=== PATIENT | female | born 1950 | race Caucasian/White ===

== ENCOUNTER → 2024-09-17 08:26 | Outpatient (BNVA) | payer MEDICARE, MEDICAID, SELFPAY | PROVIDERS: Family Provider Nurse Practitioner Family; PCP Nurse Practitioner Family; Visit Provider Registered Nurse | DX: I10 Essential (primary) hypertension (principal); E55.9 Vitamin D deficiency, unspecified | CPT/HCPCS: 80053; 80061; 82306; 85025 ==

== ENCOUNTER 2025-01-06 16:25 | Inpatient (IN) | payer MEDICARE, MEDICAID, SELFPAY ==
[2025-01-06] VITALS (10 sets, daily range): BP systolic 106–183; BP diastolic 50–81; PULSE 77–93; RESP 16–25; TEMP 36.4; O2SAT 93–98
--- NOTE | 2025-01-06 16:26 | XRR_ITS ---
PROCEDURE INFORMATION: Exam: XR Chest Exam date and time: 01/06/2025 4:43 PM Age: 74 years old Clinical indication: Chest pressure and sternal or substernal pain; Additional info: Cp TECHNIQUE: Imaging protocol: Radiologic exam of the chest. Views: 1 view. COMPARISON: No relevant prior studies available. FINDINGS: Lungs: Unremarkable. No consolidation. Pleural spaces: Unremarkable. No pleural effusion. No pneumothorax. Heart/Mediastinum: Unremarkable. No cardiomegaly. Bones/joints: Unremarkable. XR/XR chest 1V portable [id number] IMPRESSION: No acute findings.
--- NOTE | 2025-01-06 16:34 | ECG_ITS ---
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 Measurements Intervals [place] Rate: 82 P: 70 [place]: 163 QRS: -71 QRSD: 130 T: 81 QT: 424 QTc: 496 Interpretive Statements SINUS RHYTHM POSSIBLE LEFT ATRIAL ENLARGEMENT [-0.1mV P-WAVE IN V1/V2] LEFT ANTERIOR FASCICULAR BLOCK [QRS AXIS <= -45, QR IN I, RS IN II] POSSIBLE ANTERIOR MYOCARDIAL INFARCTION , OF INDETERMINATE AGE [30 ms Q WAVE IN V3/V4, OR R < 0.2 mV IN V4] No previous ECG available for comparison Electronically Signed On 01-08-2025 20:11:08 STABLE HELPER by Sun Roy M.D. [id number] [id number]
[2025-01-06 17:35] LABS: Hematocrit 46.5 % (36-47); Hemoglobin 16.40 g/dL (11.27-16.99); Mean Corpuscular HGB Conc 35.3 g/dL (30-55); Mean Corpuscular Hemoglobin 30.6 pg (27-33); Mean Corpuscular Volume 86.8 fl (85-98); Nucleated Red Blood Cells % 0 %; Platelet Count 452 10^3/cmm (157-399); Red Blood Count 5.36 10^6/uL (3.85-5.65); White Blood Count 16.95 10^3/uL (3.29-11.43)
[2025-01-06] MEDS: lidocaine 2% viscous 15 ML, aluminum-mag hydrox-simethicon 30 ML, sucralfate oral liq 1 GM PO (17:42)
--- NOTE | 2025-01-06 17:48 | ED_ITS ---
HPI - Chest Pain 2 General: Chief Complaint: Chest Pain Stated Complaint: CP Time Seen by Provider: 01/06/25 17:15 History of Present Illness: Patient is a 74-year-old female who presents with acute onset of chest pain that began this morning at approximately 08:30. The pain is localized to the epigastric region. The patient reports that the pain started after she became upset when attempting to start her car and finding the door lock was frozen. She experienced associated nausea with mouth watering but denies vomiting. The pain has improved somewhat since onset but patient decided to seek medical attention. She reports eating after the episode, which made her feel better. She denies any worsening of symptoms since the initial onset. Of note, patient mentions having a history of hiatal hernia and reports tenderness when pushing on the upper abdominal/lower chest area this morning. Related Data Previous Rx's ?Medication ?Instructions ?Recorded lisinopril 5 mg tablet 5 mg PO DAILY 90 days #90 ta bs 10/09/24 Allergies Allergy/AdvReac Type Severity Reaction Status Date / Time No Known Allergies Allergy Verified 01/06/25 16:39 PFSH ED 2 PFSH: Medical History No pertinent past medical history Surgical History History of surgical removal of ganglion cyst History of tubal ligation Family History Mother Heart disease Father Dementia Social History Smoking and tobacco/nicotine status: current every day tobacco/nicotine user Alcohol intake: never Substance/Drug Use: never Adopted: No Caregiver/support person: No Lives independently: Yes service: No Current occupational status: retired Sexually active: Yes Do you think of yourself as: Straight/Heterosexual Current gender identity: Female Physical Exam 2 Const: COMMON NORMALS: no acute distress GENERAL APPEARANCE: cooperative; not ill appearing and not frail appearing HENMT: COMMON NORMALS: normocephalic, atraumatic and Normal external nose present HEAD & SCALP: normocephalic and atraumatic FACE & SINUS: normal facial exam and face symmetric NOSE: Normal external nose present Eye: COMMON NORMALS: Equal, round and reactive pupils present and EOMs intact bilaterally PUPIL: Yes Equal, round and reactive pupils present Neck/C-Spine: GENERAL: Yes trachea midline Chest: CHEST: Yes Symmetrical chest wall rise Resp: COMMON NORMALS: normal respiratory effort, No retractions, No use of accessory muscles and clear to auscultation bilaterally AUSCULTATION: clear to auscultation bilaterally Cardio: COMMON NORMALS: regular rate and regular rhythm RATE: regular rate RHYTHM: regular rhythm GI: COMMON NORMALS: Normal to inspection, nondistended, normoactive bowel sounds present Extremity: COMMON NORMALS: no pedal edema Neuro: MAHI COMA SCALE: document GCS findings [place] coma scale eye opening: Spontaneous [place] coma scale verbal response: Orientated [place] coma scale motor response: Obey commands Mahi coma scale total score: 15 S ENSORY EXAM: Yes extremities (intact) Psych: COMMON NORMALS: speech normal SPEECH: Yes normal speech Skin: COMMON NORMALS: no rashes or lesions noted GENERAL SKIN EXAM: no rashes or lesions noted Course 2 Vital Signs: Vital signs: Vital Signs Temperature 97.9 F 01/08/25 07:50 Pulse Rate 74 01/08/25 07:50 Respiratory Rate 18 01/08/25 07:50 Blood Pressure 114/55 01/08/25 07:50 Pulse Oximetry 93 01/08/25 07:50 Oxygen Delivery Me thod Room Air 01/08/25 04:00 MDM - Chest Pain Medical Decision Making 74-year-old female with cp most of the day. is essentially resolved now. She was given a GI cocktail which seemed to help to some degree. Her EKG shows left hemiblock, no ST elevation or depression. Chest x-ray is negative. CBC shows a white blood cell count of 17 85% neutrophils. Hemoglobin is 16. Creatinine 0.6. her troponin baseline is 200. TSH is normal. With significant elevation in baseline troponin, she will be admitted. Non-stemi treatment. She was given Aspirin, Plavix, Lovenox in the ER. Hospitalists is aware and we will see the patient. Cardiology will be consulted. Lab Data 01/08/25 07:02 01/08/25 07:02 Radiology Impressions Chest X-Ray 01/06/25 16:26 IMPRESSION: No acute findings. Abdomen/Pelvis CT 01/06/25 17:50 IMPRESSION: No acute process. Incidental and chronic findings as above. Laboratory Results WBC 16.95 10^3/uL (3.29-11.43) H 01/06/25 17: RBC 5.36 10^6/uL (3.85-5.65) 01/06/25 17: Hgb 16.40 g/dL (11.27-16.99) 01/06/25 17: Hct 46.5 % (36-47) 01/06/25 17: MCV 86.8 fl (85-98) 01/06/25 17: MCH 30.6 pg (27-33) 01/06/25 17: MCHC 35.3 g/dL (30-55) 01/06/25: RDW 11.9 % (12.1-15.1) L 01/06/25 17: Plt Count 452 10^3/cmm (157-399) H 01/06/25 17: MPV 10.2 fL (7.4-10.4) 01/06/25 17: Neut % (Auto) 85.4 % 01/06/25 17: Lymph % (Auto) 9.5 % 01/06/25 17: [place] % (Auto) 4.0 % 01/06/25: Eos % (Auto) 0.2 % 01/06/25: Baso % (Auto) 0.5 % 01/06/25: Neut # (Auto) 14.50 10^3/uL (1.8-7.7) H 01/06/25: Lymph # (Auto) 1.6 10^3/uL (0.8-4.8) 01/06/25: [place] # (Auto) 0.7 10^3/uL (0.2-0.9) 01/06/25: Eos # (Auto) 0.0 10^3/uL (0.0-0.8) 01/06/25 17: Baso # (Auto) 0.1 10^3/uL (0.0-0.1) 01/06/25: Nucleated RBC % (auto) 0 % 01/06/25: Nucleated RBCs # 0.0 /100WBC 01/06/25 17:28 PT 12.90 SECONDS (12.1-14.9) 01/06/25 17:28 INR 0.91 (0.8-1.2) 01/06/25 17:28 Sodium 137 mmol/L (136-145) 01/06/25 17:28 Potassium 4.0 mmol/L (3.5-5.1) 01/06/25 17:28 Chloride 101 mmol/L (98-107) 01/06/25 17: Carbon Dioxide 25 mmol/L (22-29) 01/06/25 17:28 Anion Gap 15.0 (5-19) 01/06/25 17:28 BUN 14 mg/dL (8-23) 01/06/25 17:28 Creatinine 0.6 mg/dL (0.5-0.9) 01/06/25 17:28 GFR Calculation Not Reportable 01/06/25 17:28 Glucose 109 mg/dL (65-115) 01/06/25 17:28 Estimat Average Glucose 105 01/06/25 17:28 Hemoglobin A1c 5.3 % (4.0-6.0) 01/06/25 17:28 Calculated Osmolality 285 mOsm/kg (285-295) 01/06/25 17:28 Calcium 9.7 mg/dL (8.5-10.5) 01/06/25 17:28 Phosphorus 3.1 mg/dL (2.5-4.5) 01/06/25 17:28 Magnesium 1.8 mg/dL (1.7-2.3) 01/06/25 17:28 Total Bilirubin 0.5 mg/dL (0.15-1.2) 01/06/25 17:28 AST 27 U/L (0-32) 01/06/25 17:28 ALT 14 U/L (0-33) 01/06/25 17:28 Alkaline Phosphatase 99 U/L (35-105) 01/06/25 17:28 Troponin T Baseline 200 ng/L (0-10) H* 01/06/25 17:28 Total Protein 7.1 g/dL (6.6-8.7) 01/06/25 17:28 Albumin 4.5 g/dL (3.5-5.2) 01/06/25 17:28 Globulin 2.6 g/dL (1.3-4.6) 01/06/25 17:28 Lipase 14 U/L (13-60) 01/06/25 17:28 TSH 3.12 uIU/mL (0.27-4.20) 01/06/25 17:28 All radiology interpretation(s) finalized by discharge EKG Data EKG 1: Interpretation: Time 1634 Read 1638 SR 80 Left hemiblock, borderline LAD QTc [address] wave change Critical Care Time 2 Critical Care Time: Critical Care Time: Yes Total Critical Care Time: 35 Attestation: This case had a high probability of a clinically significant, sudden, or life threatening deterioration of this patient's condition which required my full and direct attention, intervention and personal management. Time is independent of any procedures performed. Discharge Plan Discharge Patient Disposition: Admitted As Inpatient Admit Provider: Gerard Reid Clinical Impression: NSTEMI (non-ST elevated myocardial infarction) Condition: Stable Coding Level of Care Code ED Brood Station Manager for Chg Fwd Heart Score HEART Score Components History: Moderately Suspicious EKG: Non-specific Changes Age: 65 or more yrs Risk Factors: 1 or 2 Risk Factors Troponin: Baseline Trop >45 ng/L HEART Score RESULT HEART Score: 7
--- NOTE | 2025-01-06 17:50 | CTR_ITS ---
PROCEDURE INFORMATION: Exam: CT Abdomen And Pelvis With Contrast Exam date and time: 01/06/2025 5:58 PM Age: 74 years old Clinical indication: Pain and abnormal findings; Abnormal lab test; Elevated wbc; Abdominal pain; Prior surgery; Surgery date: 6+ months; Surgery type: Tubal; Epigastric pain with wbc of 16k. ; Additional info: Epigastric pain leukocytosis TECHNIQUE: Imaging protocol: Computed tomography of the abdomen and pelvis with contrast. Radiation optimization: All CT scans at this facility use at least one of these dose optimization techniques: automated exposure control; mA and/or kV adjustment per patient size (includes targeted exams where dose is matched to clinical indication); or iterative reconstruction. Contrast material: OMNI 350; Contrast volume: 80 ml; Contrast route: INTRAVENOUS (IV); COMPARISON: CR (CHEST, ) 01/06/2025 4:43 PM RADIATION DOSE METRICS: Total DLP (mGy-cm): 323.58 FINDINGS: Liver: Subcentimeter low-density lesion in the right hepatic lobe likely represents a cyst. Gallbladder and biliary ducts: Normal. No calcified stones. No ductal dilation. Pancreas: Normal. No ductal dilation. Spleen: Sequela of chronic granulomatous disease of the spleen. Adrenal glands: Normal. No mass. Kidneys and ureters: Bilateral nonobstructing nephrolithiasis. No hydronephrosis. Stomach and bowel: Colonic diverticulosis. No bowel obstruction. Appendix: No evidence of appendicitis. Intraperitoneal space: Unremarkable. No free air. No significant fluid collection. Vasculature: Atherosclerosis of the abdominal bi iliac aorta. Lymph nodes: Unremarkable. No enlarged lymph nodes. Urinary bladder: Unremarkable as visualized. Reproductive: Unremarkable as visualized. Bones/joints: Unremarkable. No acute fracture. Soft tissues: Unremarkable. CT/CT abdomen pelvis w con* [id number] IMPRESSION: No acute process. Incidental and chronic findings as above.
[2025-01-06 17:53] LABS: INR 0.91 (0.8-1.2); Prothrombin Time 12.90 SECONDS (12.1-14.9)
[2025-01-06 17:58] LABS: Alanine Aminotransferase 14 U/L (0-33); Albumin Level 4.5 g/dL (3.5-5.2); Alkaline Phosphatase 99 U/L (35-105); Anion Gap 15.0 (5-19); Aspartate Amino Transferase 27 U/L (0-32); Blood Urea Nitrogen 14 mg/dL (8-23); Calcium 9.7 mg/dL (8.5-10.5); Carbon Dioxide 25 mmol/L (22-29); Chloride 101 mmol/L (98-107); Globulin 2.6 g/dL (1.3-4.6); Glucose 109 mg/dL (65-115); Lipase 14 U/L (13-60); Osmolality Calculated 285 mOsm/kg (285-295); Potassium 4.0 mmol/L (3.5-5.1); Sodium 137 mmol/L (136-145); Total Protein 7.1 g/dL (6.6-8.7)
[2025-01-06] MEDS: iohexol 350 mg/mL 500 mL Btl (per mL) IV (18:01)
[2025-01-06 18:13] LABS: Troponin(5th) Baseline 200 ng/L (0-10)
--- NOTE | 2025-01-06 18:24 | ECG_ITS ---
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 Measurements Intervals [place] Rate: 82 P: 69 [place]: 175 QRS: -71 QRSD: 126 T: 79 QT: 433 QTc: 506 Interpretive Statements SINUS RHYTHM POSSIBLE LEFT ATRIAL ENLARGEMENT [-0.1mV P-WAVE IN V1/V2] NONSPECIFIC INTRAVENTRICULAR CONDUCTION DELAY LEFT AXIS DEVIATION [QRS AXIS < -30] ANTEROSEPTAL MYOCARDIAL INFARCTION , PROBABLY RECENT [40+ ms Q WAVE IN V1-V4] ACUTE UT Compared to ECG 01/06/2025 16:34:54 Left-axis deviation now present Left anterior fascicular block no longer present Myocardial infarct finding still present Electronically Signed On 01-08-2025 20:09:56 DIESEL TECHNOLOGY INSTRUCTOR by Sun Roy M.D. [email or web address] [id number]
--- NOTE | 2025-01-06 18:29 | P.HP_ITS ---
Providers/Chief Complaint 2 Admitting Physician: Gerrad Reid Primary Care Provider: ADIA Canales Chief Complaint: CP History of Present Illness As per the previous notes and the patient: Rowan Mary is a 74 year old female with past medical history of uncontrolled hypertension on lisinopril 5mg daily, cigarette smoking quit just 1 week ago, presented with chest pain. the chest pain started in the morning when the patient went to help her daughter in the [place] for cleaning. the chest pain was in the center with some heaviness and mild SOB, associated with nausea but no vomiting. no recent exertional SOB or any such episodes in the past. The patient did not report any abdominal pain, diarrhea or vomiting. No fever or chills. No no upper respiratory tract like infectio. No orthopnea or PND or any recent lower leg swellings rest of the review of system was unremarkable. no excessive alcohol or any drug abuse Review of Systems 2 General: Reports: 10 or more systems reviewed and unremarkable except in HPI and below Medications/Allergies Home Medications ?Medication ?Instructions ?Recorded ?Confirmed ?Last Taken ?Type lisinopril 5 mg tablet 5 mg PO DAILY 90 days #90 ta bs 10/09/24 10/09/24 Unknown Rx Allergies Allergy/AdvReac Type Severity Reaction Status Date / Time No Known Allergies Allergy Verified 01/06/25 16:39 PFSH Acute 2 PFSH: Medical History (Updated 01/06/25 @ 19:41 by Gerard Reid MD) No pertinent past medical history Surgical History History of surgical removal of ganglion cyst History of tubal ligation Family History Mother Heart disease Father Dementia Social History Smoking and tobacco/nicotine status: current every day tobacco/nicotine user Alcohol intake: never Substance/Drug Use: never Adopted: No Caregiver/support person: No Lives independently: Yes service: No Current occupational status: retired Sexually active: Yes Do you think of yourself as: Straight/Heterosexual Current gender identity: Female Vitals/I&O/Wt Last Vital Signs Temp 97.6 F 01/06/25 16:36 Pulse 77 01/06/25 17:30 Resp 16 01/06/25 16:36 BP 174/77 01/06/25 17:30 Pulse Ox 95 01/06/25 17:30 O2 Del Method Room Air 01/06/25 17:30 01/06/25 01/06/25 01/06/25 06:59 14:59 22:59 Intake Total 0 / 0 Balance 0 / 0 Weight last 48 hrs Weight 50.349 kg Physical Exam 2 Narrative: General: Alert and oriented, lying comfortably without any distress HEENT: Normocephalic, atraumatic, grossly unremarkable exam Cardio: normal rate rhythm, normal S1-S2 without any murmurs, rubs, or gallops and JVD normal Respiratory: normal vascular breathing on auscultation without any wheezes, stridor, rhonchi GI: Abdomen soft, nontender, nondistended, normoactive bowel sounds present all 4 quadrants, Neuro: intact cranial nerves motor and sensory and cerebellar/coordination function without any focal neurological deficit Behavior: Appropriate and cooperative Extremities: Adequate palpable pulses, mild trace pedal edema Data 01/06/25 17:28 01/06/25 17:28 A&P Assessment and plan 1. ACS (acute coronary syndrome): - Patient having raised troponins which are significant and concerning for NSTEMI worsening STEMI since the EKG changes are still not suggestive of STEMI - Loaded with aspirin and Plavix - Heparin infusion - Urgent cardiology consult for further intervention and plan of care and recommended as per the ER Physician endorsement to treat as NSTEMI and if the patient is having active chest pain or concerning EKG changes then to call urgently for possible CATH - N.p.o. for likely cath tomorrow in the morning - Telemetry/cardiac monitoring - Echo - Monitor and correction of electrolytes - TSH and hba1c, recent lipid panel reviewed done in 10/01 - Monitor hemodynamics and maintain MAP above 65 2. Hypertensive emergency: - patient having NSTEMI vs Stemi, some EKG changes involving the anteroseptal area? alongwith BP above 200s systolic? HTN emergency or the other way around with WA and chest pain leading to increased BP? - stat hydralazine 10mg iv - lisinopril 20mg stat and to start daily - amlodipine 5mg po stat and to start daily - monitor BP - if uncontrolled and still above 200s then consider nicardipine drip - BP target not to go below around 160S systolic in 24 hours, slow and targetted BP control 3. Leukocytosis, unspecified type: - Possible stress related secondary to ACS - No signs of infections based on clinical history and examination - Continue to monitor, if there is any clinical evidence of infection then low threshold for antibiotics - Sent for blood cultures urinalysis and urine cultures - Chest x-ray did not show any acute findings 4. Mixed hyperlipidemia: - Blood works in September showed mixed hyperlipidemia - Continue high-dose statins 5. Cigarette smoker two packs a day or less: - patient recently quit one week ago - Emphasis on smoking cessation has been provided - Follow-up with the primary care physician postdischarge PDMP PDMP Reviewed: Not Reviewed Attestations 2 Medical Necessity Statement*: Patient would likely stay more than 2 midnights for the management of ACS NSTEMI versus STEMI? Time Spent in Patient Care: 16 - 35 minutes (>than 50% of time sp ent in counselling and/or direct pt care on unit) . Other Attestations: Patient condition has been discussed at length with the patient/family, I have independently reviewed the chart labs imaging/diagnostics/EKG. the goals of care and code status with the patient/family/NOK/legal personal financial representative, and documented accordingly. The management has been done according to the current clinical condition with respect to patient goals of care and based on recommendations/guidelines. The patient/family has been informed about the current condition and further plan of care. Agreed with the plan of care and understood without any language barrier. Every effort was made to ensure accuracy of divorce attorney. Any obvious errors or omissions should be clarified with the author of the document. Coding Level of Care Code Acute Code for Chg Fwd Diagnoses ACS (acute coronary syndrome) I24.9 Hypertensive emergency I16.1 Leukocytosis, unspecified type D72.829 Leukocytosis type: unspecified Mixed hyperlipidemia E78.2 Cigarette smoker two packs a day or less F17.210
--- NOTE | 2025-01-06 18:41 | USCV_ITS ---
Rowan Mary Age: 74 Gender: F : 1950 Exam Date: 01/06/2025 19:17 Ordering Phys: Gerard Reid MD Technologist: Kirby Luu Exam Location: [facility] [place] Indication: chest pain and rising troponins BP: 183 / 81 HR: 83 Rhythm: Sinus Technical Quality: Adequate MEASUREMENTS (Male / Female) Normal Values 2D ECHO LV Diastolic Diameter PLAX 3.2 cm 4.2 - 5.9 / 3.9 - 5.3 cm IVS Diastolic Thickness 0.7 cm 0.6 - 1.0 / 0.6 - 0.9 cm IVS Systolic Thickness 0.7 cm LVPW Diastolic Thickness 0.7 cm 0.6 - 1.0 / 0.6 - 0.9 cm LVPW Systolic Thickness 1.2 cm LVOT Diameter 2.0 cm LV Ejection Fraction 2D Teich 42.7 % LV Ejection Fraction MOD 4C 48.7 % LV Ejection Fraction MOD 2C 44.3 % LV Ejection Fraction 2C AL 44.0 % LA Diameter 3.1 cm RA Systolic Volume 4C AL 21.9 ml RA Systolic Volume 4C MOD 21.9 ml LA Sys Volume AL 25.2 cm cubed LA Sys Volume Index AL 17.3 cm cubed/m squared Aorta at Sinotubular Diameter 1.9 cm IVC Diameter 1.7 cm M-MODE LA Ao Ratio MM 1.3 AV Cusp Separation MM 1.4 cm DOPPLER AV Peak Velocity 102.0 cm/s LVOT Peak Velocity 79.0 cm/s AV Area Cont Eq vti 2.4 cm squared AV Area Cont Eq pk 2.4 cm squared MV Peak Velocity 108.0 cm/s MV Area PHT 8.8 cm squared Mitral E to A Ratio 0.5 TV Peak Velocity 170.5 cm/s TR Peak Velocity 176.0 cm/s TR Peak Gradient 12.4 mmHg TR Mean Velocity 129.0 cm/s TR Mean Gradient 7.4 mmHg TR Velocity Time Integral 38.6 cm PV Peak Velocity 83.0 cm/s RV Ejection Time 0.3 s FINDINGS Left Ventricle Normal left ventricular cavity size. There is segmental wall motion abnormality with akinesis of the apical and mid anteroseptal, inferoseptal and inferior wall segments and hypokinesis of the apical and mid anterior wall segments. Moderately reduced left ventricular systolic function with an estimated ejection fraction of 40%. Possible small apical thrombus. Recommend limited echo with IV echo contrast to evaluate further for possible apical thrombus. Normal left ventricular wall thickness. Normal diastolic function. Right Ventricle Normal right ventricular size and systolic function. Normal right ventricular systolic pressure. Right Atrium Normal right atrial size. Left Atrium Normal left atrial size. IA Septum Normal interatrial septum. Mitral Valve Mild mitral valve regurgitation. Aortic Valve Aortic valve not well visualized. No aortic valve stenosis. Trace aortic valve regurgitation. Tricuspid Valve Trace tricuspid valve regurgitation. Pulmonic Valve No pulmonary valve stenosis. No pulmonary valve regurgitation. Pericardium No pericardial effusion. Aorta Normal size aortic root and proximal ascending aorta. IVC Normal inferior vena cava. CONCLUSIONS 1. Normal left ventricular cavity size. There is segmental wall motion abnormality with akinesis of the apical and mid anteroseptal, inferoseptal and inferior wall segments and hypokinesis of the apical and mid anterior wall segments. Moderately reduced left ventricular systolic function with an estimated ejection fraction of 40%. Possible small apical thrombus. Recommend limited echo with IV echo contrast to evaluate further for possible apical thrombus. 2. Normal RV size and function 3. Mild mitral valve regurgitation. Chris Wood MD, FACC (Electronically Signed) Final Date: 06 January 2025 22:05 S
[2025-01-06] MEDS: alum-mag-hydroxide-sime 30 mL UDC 15 ML PO (19:17)
[2025-01-06] MEDS: pantoprazole 40 mg SDV IVP (19:17)
[2025-01-06 19:56] LABS: Magnesium 1.8 mg/dL (1.7-2.3); Thyroid Stimulating Hormone 3.12 uIU/mL (0.27-4.20)
[2025-01-06 20:05] LABS: Estmated Average Glucose 105; Hemoglobin A1C 5.3 % (4.0-6.0)
[2025-01-06] MEDS: hyDRALAzine 20 mg/mL INJ 1 mL 10 MG IVP (20:43)
[2025-01-06] MEDS: ondansetron 2 mg/ML SDV 2 mL 4 MG IVP (21:11)
[2025-01-06 21:17] LABS: Glucose Urine UA Negative (Normal); Nitrate Urine Negative (Negative)
[2025-01-06 21:22] LABS: Add Urine Microscopic? YES
[2025-01-06 21:25] LABS: Specific Gravity, Urine 1.044 (1.005-1.030)
[2025-01-06 21:26] LABS: PCP Screen Urine Negative (Negative)
--- NOTE | 2025-01-06 21:29 | PC.NURSE ---
called and spoke with brant and verified we have no lactated ringers if he wanted me to change to normal saline or discontinue the order he said to discontinue order he does not want her to have normal saline due to her increased blood pressure
--- NOTE | 2025-01-06 22:37 | PC.NURSE ---
workflow will not let me collect the urine culture but urinalysis was collected. spoke to lab they are not sure why it wont collect verified that they do have the urine and it is running and that they can collect the culture off the urinalysis sample they already have. she is going to put in a separate order for urine culture on labs side of things.
[2025-01-07] VITALS (30 sets, daily range): BP systolic 113–142; BP diastolic 48–73; PULSE 77–98; RESP 16–26; TEMP 36.4–37.1; O2SAT 90–95
[2025-01-07] LABS: Troponin 5 6HR Delta -14.5 ng/L (0-12)
[2025-01-07 00:01] LABS: Troponin 5 6HR 185.5 ng/L (0-10)
[2025-01-07] MEDS: alum-mag-hydroxide-sime 30 mL UDC 15 ML PO ×2 (01:15→06:28)
--- NOTE | 2025-01-07 01:43 | ECG_ITS ---
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 Measurements Intervals [place] Rate: 96 P: 73 [place]: 148 QRS: -69 QRSD: 133 T: 84 QT: 416 QTc: 528 Interpretive Statements SINUS RHYTHM LEFT AXIS DEVIATION [QRS AXIS < -30] INTRAVENTRICULAR CONDUCTION DELAY [130+ ms QRS DURATION] POSSIBLE ANTERIOR MYOCARDIAL INFARCTION , OF INDETERMINATE AGE [30 ms Q WAVE IN V3/V4, OR R < 0.2 mV IN V4] Compared to ECG 01/06/2025 18:39:25 Intraventricular conduction delay now present Myocardial infarct finding still present Electronically Signed On 01-08-2025 21:01:21 LICENSED PSYCHOLOGIST by Snu Roy M.D. [email or web address] [id number]
[2025-01-07 03:11] LABS: Hematocrit 43.9 % (36-47); Hemoglobin 15.10 g/dL (11.27-16.99); Mean Corpuscular HGB Conc 34.4 g/dL (30-55); Mean Corpuscular Hemoglobin 30.5 pg (27-33); Mean Corpuscular Volume 88.7 fl (85-98); Nucleated Red Blood Cells % 0 %; Platelet Count 394 10^3/cmm (157-399); Red Blood Count 4.95 10^6/uL (3.85-5.65); White Blood Count 17.74 10^3/uL (3.29-11.43)
[2025-01-07 03:42] LABS: Alanine Aminotransferase 14 U/L (0-33); Albumin Level 4.3 g/dL (3.5-5.2); Alkaline Phosphatase 92 U/L (35-105); Anion Gap 15.8 (5-19); Aspartate Amino Transferase 27 U/L (0-32); Blood Urea Nitrogen 14 mg/dL (8-23); Calcium 9.4 mg/dL (8.5-10.5); Carbon Dioxide 25 mmol/L (22-29); Chloride 100 mmol/L (98-107); Globulin 1.9 g/dL (1.3-4.6); Glucose 126 mg/dL (65-115); Osmolality Calculated 286 mOsm/kg (285-295); Potassium 3.8 mmol/L (3.5-5.1); Sodium 137 mmol/L (136-145); Total Protein 6.2 g/dL (6.6-8.7)
--- NOTE | 2025-01-07 08:39 | XACV_ITS ---
Exam Room: [facility] Ht: 150 cm Wt: 51 kg BSA: 1.47 m2 Gender: Female : 1950 Any Known Allergies: No known allergies Exam Priority: Routine Procedure(s): Procedure Description: Diagnostic procedure Procedure Description: PCI procedure Procedure Description: Left Heart Catheterization Procedure Description: Drug Eluting Coronary Stent Procedure Description: PTCA Procedure Description: Miscellaneous Procedure Description: ACT Procedure Description: Coronary Angiography Dannielle BANUELOS; Diagnostic Cath Status: Elective Diagnostic Findings * Indication: New onset of heart failure LV dysfunction anterior wall and apical wall motion abnormality with possible LV thrombus. Acute coronary syndrome.. PCI Indication: NSTE - ACS Interventional Findings * Successful PCI to mid LAD. Lesion was prepared with 2.5 x 12 mm AV trek balloon, followed by deployment of Jumana resolute 3.0 x 12 mm stent posted at high IVY of 12 mm. Stent was then post-dilated with serial dilatation of MDT NC Nikolai] 3.5 x 12 at 10 IVY in its entire length to ensure proper approximation. Excellent angiographic result with CLINT-3 flow was achieved. Recommendations * 1-Return to inpatient for close monitoring and routine cath care 2-Risk factor modification for secondary prevention 3-Statin and aspirin 81 mg life-long, if tolerated 4-Patient was pre-loaded with 600 mg of Plavix, continue Plavix 75mg p.o. daily for at least one year. We will assess at the end of one year again to continue if further or not 5-Continue optimal medical management 6-Follow up with Dr. Wood in four weeks and your primary care in 10 days. Interventional RX Recommendation: PCI w/o planned CABG Diagnostic RX Recommendation: PCI w/o planned CABG Pressures Phase:Rest AO : 143 / 70 ( 101 ) @ 11:50:00 AM 133 / 67 ( 92 ) @ 11:52:00 AM 167 / 76 ( 116 ) @ 12:01:00 PM 186 / 109 ( 146 ) @ 12:11:00 PM LV : 161 / 7 / 29 @ 12:01:00 PM 162 / 6 / 28 @ 12:01:00 PM Valves Phase:DefaultPhase AV : 0.0 @ 12:22:47 PM AV Mean Gradient: 0.0 @ 12:22:47 PM Clinical Evaluation EBL: 5mL-10mL Procedural Details Procedure Consent Obtained. Admit Source: In Patient. Pre-Procedure Time Out. Identified patient by full name and date of as verbalized by the patient/guarantor. Does the consent match the physician's order: Yes. Accurate & Complete Informed Consent: Yes. Inpatient/Outpatient History & Physical on Chart: Yes. If H&P is completed, is and addenduem needed: No; If yes, is the addendum complete: N/A. Visualize and Verify Site with Patient/Guarantor: N/A. Relevant Radiology Images available: Yes. Pre-op teaching completed and patient verbalized understanding. The risks, benefits, and alternatives of sedation and/or procedure were discussed by physician. The patient agrees to continue. Procedure started. Current Diagnosis : NSTEMI. [facility] Clinical Fraility Score: 3: Managing Well. Soda Clerk Indications: ACS > 24 hours. Chest Pain Symptom Assessment: Atypical Angina. Correct patient, site and procedure confirmed by cath team. Current diagnosis: NSTEMI. PERRLA. Strong, equal hand water pump servicer bilaterally. Lungs clear x 5 lobes. IV Site on Arrival: 20 gauge in the left anticubital. IV Fluids: 0.9% NaCl at KVO. 0 mL infused prior to [facility]. Pre Procedural Pulses: right radial was 2+. Oxygen started at 2liters/min via nasal canula. right groin was prepped with chloroprep then draped in the usual sterile fashion. right radial was prepped with chloroprep then draped in the usual sterile fashion. Baseline sample Acquired. HR: 95 BPM. Physician arrived. Physician scrubbed in. Immediate Pre-Procedure Time Out. Correct Patient: Yes; Correct Procedure: Yes; Correct Site: Yes; Correct Patient Position: Yes; Correct Supplies: Yes; Dried Flammable Prep: Yes; Blood Products Available: N/A;. Lidocaine 1% infiltrated to the right radial. Arterial access obtained. A 5 czech TIG catheter in over wire. Catheter removed over the exchange wire. Contrast injected through the sheath. Glidewire inserted. A 5 czech TIG catheter in over wire. Multiple views taken of left coronary artery. Catheter redirected to the RCA. Multiple views taken of right coronary artery. Catheter removed over the exchange wire. 6 czech XB 3 guide catheter was inserted over the wire. ACT drawn. Results 294 seconds. Therapeutic limits - pre-heparin administration 90-150 seconds and monitoring heparin during a vascular procedure >250 seconds. EDP Sample taken: LV 161/7,29; HR: 95 BPM; SpO2: 93%. Pullback taken: LV 162/6,28; AO 167/76(116); Mean: 0mmHg, Peak to Peak: 0mmHg, SEP: 17sec/min; HR: 95 BPM; SpO2: 92%. Runthrough guidewire was advanced through the guide catheter to lesion in the distal LAD. Inflation number : 1 A AB TREK 2.50X12 RX BALLOON was prepped and advanced across the Mid LAD , then inflated to 12 IVY for 0:13 seconds. Balloon out. Inflation Number : 2 A PIA Bond JUMANA 3.0X12 CHELITA -Lot Number# _[id number] EXP: 04/18/2027 was prepped and advanced across the Mid LAD. The stent was deployed at 12 IVY for 0:11 seconds. Stent balloon out over wire. Inflation number : 3 A PIA VAZ EUPHORA RX [id number] BALLOON was prepped and advanced across the Mid LAD , then inflated to 10 IVY for 0:19 seconds. Inflation number: 4 The PIA VAZ EUPHORA RX [id number] BALLOON was reinflated across the Mid LAD, to 10 IVY for 0:15 seconds. Balloon out. Results checked. Wire out. Guide catheter out. A TR Band was successful obtaining hemostatsis at the Right Radial artery insertion site. Vital chart was stopped. Post Procedure: Pulses reassessed and unchanged. PERRLA. Strong, equal hand water pump servicer bilaterally. No VTE prophylaxis required. Medication's Wasted: Lidocaine 1% = 18 mL. Medication's Wasted: Nitro = 49.6 mcg. Medication's Wasted: Heparin = 1000 units. Total IV fluids: 50 mL. Post-op diagnosis: Stent to LAD. Complications: None. Estimated blood loss: 5mL-10mL. Responsiveness - Normal response to verbal stimuli; alert and oriented, PERRLA. Airway - Unaffected, no intervention required; spontaneous ventilation. Circulation: W/N/L, pulses unchanged. Nausea/Vomiting: No. Procedure completed. Patient transferred by bed to 1st floor. Access Site Site: Right Radial artery Sheath Size: 6 Fr Hemostasis Method: TR Band Hemostasis Success: Successful Procedure Medications Start: 11:33 AM Stop: 11:33 AM Medication: Versed Amount: 1 mg Route: I.V. Start: 11:33 AM Stop: 11:33 AM Medication: Fentanyl Amount: 50 mcg Route: I.V. Start: 11:42 AM Stop: 11:42 AM Medication: Nitrogylcerin Amount: 200 mcg Route: I.A. Start: 11:44 AM Stop: 11:44 AM Medication: Versed Amount: 1 mg Route: I.V. Start: 11:49 AM Stop: 11:49 AM Medication: Heparin Amount: 5000 units Route: I.V. Start: 11:52 AM Stop: 11:52 AM Medication: Nitrogylcerin Amount: 200 mcg Route: I.C. Start: 11:58 AM Stop: 11:58 AM Medication: Fentanyl Amount: 50 mcg Route: I.V. Start: 12:16 PM Stop: 12:16 PM Medication: Hydralazine Amount: 10 mg Route: I.V. Start: 12:16 PM Stop: 12:16 PM Medication: Plavix Amount: 300 mg Route: P.O. I, the attending physician, have reviewed and verified all procedure medications. Yes, all medications given per verbal order History/Risk Factors Hypertension: Yes Dyslipidemia: Yes Peripheral Arterial Disease (PAD): No Myocardial Infarction (CA): No Obesity: No Renal Disease: No Tobacco Use: Current/Recent(w/in 1 year) Prior Interventions PCI: No CABG: No Valve Surgery: No Report Signatures Finalized by Andrey Spicer MD on 01/07/2025 12:35 PM
--- NOTE | 2025-01-07 09:57 | PC.CHAP ---
Pastoral Care Encounter/Spiritual Assessment Type of Contact [] Declined rn call center visit [] Patient/Family/Request visit [] Outpatient visit [] Follow-up visit [] Physician referral [] Code/Alert [x] Routine visit [] Staff referral [] Actively dying [] Patient sleeping [x] Family support [] [] Out of room [] Palliative care [] [] Receiving care in room [] Pre-surgical visit [] Trauma [] Long length of stay [] ICU visit [] Other: Relational/Emotional Strength [] Patient feels connected with others/family/visitors/staff [] Distress [] Loneliness/isolation [] Abandonment Spirituality of Patient [x] Person of [place] [x] Attends Latter Day of their [place] [x] Believes in Prayer [x] Reads Bible or Congregational materials [] There are Spiritual issues to be addressed Metal Bonding Assembler Interventions [x] Prayer [x] Active listening [] Non-anxious presence [] Spiritual/emotional support [] Crisis/trauma care [] Spiritual counseling [] Bereavement support [] Provided bereavement packet [x] Provided Bible/devotional materials [] Provided toy/stuffed animal, coloring book to patient or family member [] Provided Communion [] Anointing/[place] [] Salvation [x] Completed spiritual assessment [] Other: Impact on Illness or Injury [] Angry [] Fearful [] Anxious [] Often cries [] Exhaustion [] Unable to work [] Unable to attend spiritism [] Unable to walk/stand [] Unable to read [] Unable to drive [] Unable to eat/drink [] Unable to sleep [] Unable to be with family [] Patient intubated [] Other: Summary Time spent with patient 45 min
--- NOTE | 2025-01-07 10:50 | P.CONIM_ITS ---
<Statement entered by Chris Wood MD - 01/08/25 12:45> Patient was evaluated and cared for in conjunction with the advanced practice practitioner. Due to computer system upgrade I was not able to add my attestation note to the chart yesterday and therefore am adding it today. I personally saw the patient and reviewed the chart and all pertinent data yesterday. I discussed the patient in detail with the advanced practice practitioner yesterday. Please see their note for complete assessment and agreed upon plan of care for the patient. Providers/Reason For Consult 2 Consulting Physician/Specialty*: Dr. Wood Reason for Consult*: NSTEMI, chest pain Requesting Physician: Dr. Franklin Gee Attending Physician: Gerard Reid MD Primary Care Provider: ADIA Canales History of Present Illness History of Present Illness Rowan Mary is a very pleasant 74 year old female With history of smoking quit just 1 week ago, hypertension, hypercholesterolemia, presented to the emergency room with chest pain. States that her chest pain started Tuesday in the morning when she could not get her door open due to it had froze over. It was at the center of her chest. She did have some nausea associated with this. She states it remained the same in severity and remained consistently present and when it did not improve she went to the emergency room. States she had some nausea with this denies vomiting. Denies any radiation to any other areas. Reports a positive family history for heart disease but denies any personal history of heart disease or heart failure. EKG showed left anterior fascicular block with Q waves in the V leads. Currently she is chest pain-free. Troponins were elevated at 200-153-185. Labs are within normal limits. Blood pressure 123/64. Oxygen saturation 93% on room air. She did get Plavix 300 yesterday and was given aspirin as well. Currently on lisinopril 20 mg and amlodipine 5 mg and Lovenox 50 given in the ER. Echo-ejection fraction is moderately reduced at 40% with possible small apical thrombus. She has segmental wall motion abnormality with akinesis of the apical mid anterior septal inferior septal and inferior wall segments and hypokinesis of the apical and mid anterior wall segments. Review of Systems 2 Narrative: Consitutional: denies fever, chills, body aches, or changes in appetite, denies abnormal weight loss Eyes: Denies changes in vision Card: Denies chest pain, palpitations, irregular heart rhythm, edema, syncope, shortness of breath, orthopnea, leg pain with exertion Resp: Denies shortness of breath, denies hemoptysis, denies cough GI: denies abdominal pain, denies nausea or voimting, denies blood in stool : denies blood in urine, denies dysuria Musc: Denies extremity pain, denies limited range of motion or recent injury Skin: Denies rash, lesions, or wounds, denies changes to skin color Neuro: Denies nubmness in extremities, h/a, s/s of stroke Erich: Denies easy bruiding/bleeding All: Denies s/s of allergies Medications/Allergies Home Medications ?Medication ?Instructions ?Recorded ?Confirmed ?Last Taken ?Type lisinopril 5 mg tablet 5 mg PO DAILY 90 days #90 ta bs 10/09/24 01/07/25 01/06/25 Rx Allergies Allergy/AdvReac Type Severity Reaction Status Date / Time No Known Allergies Allergy Verified 01/06/25 16:39 Current Medications Generic Name Dose Route Start Last Admin Trade Name Freq PRN Reason Stop Dose Admin Acetaminophen 650 mg 01/06/25 18:25 01/07/25 01:15 Acetaminophen 325 Mg Tablet PO 650 mg Q6H PRN Administration Mild/Mod Pain Or Temp >/= 101 Al Hydrox/Mg Hydrox/Simethicone 15 ml 01/06/25 18:30 01/07/25 06:28 Ykmr-Rbr-Eyovgfkhk-Anh 30 Ml Udc PO 15 ml Q6H GULSHAN Administration Lactated Ringer's 1,000 mls @ 100 mls/hr 01/06/25 18:30 01/06/25 21:30 Lactated Ringers IV Not Given .Q10H GULSHAN Ondansetron HCl 4 mg 01/06/25 18:25 01/06/25 21:11 Ondansetron 2 Mg/Ml Sdv 2 Ml IVP 4 mg Q8H PRN Administration vomiting, or N/V if npo Pantoprazole Sodium 40 mg 01/06/25 18:30 01/06/25 19:17 Pantoprazole 40 Mg Sdv IVP 40 mg Q24H GULSHAN Administration Senna 17.2 mg 01/06/25 21:00 01/06/25 21:10 Sennosides 8.6 Mg Tablet PO 17.2 mg BEDTIME GULSHAN Administration PFSH Acute 2 PFSH: Medical History (Updated 01/07/25 @ 10:56 by Jane Obrien NP) No pertinent past medical history Surgical History History of surgical removal of ganglion cyst History of tubal ligation Family History Mother Heart disease Father Dementia Social History Smoking and tobacco/nicotine status: current every day tobacco/nicotine user Alcohol intake: never Substance/Drug Use: never Adopted: No Caregiver/support person: No Lives independently: Yes service: No Current occupational status: retired Sexually active: Yes Do you think of yourself as: Straight/Heterosexual Current gender identity: Female Vitals/I&O/Wt Last Vital Signs Temp 98.4 F 01/07/25 07:20 Pulse 86 01/07/25 07:20 Resp 16 01/07/25 07:20 BP 123/64 01/07/25 07:20 Pulse Ox 93 01/07/25 07:20 O2 Del Method Room Air 01/07/25 07:20 01/06/25 01/07/25 01/07/25 22:59 06:59 14:59 Intake Total 0 / 0 Output Total 100 / 100 Balance 0 / 0 -100 / -100 Weight last 48 hrs Weight 113 lb 8.609 oz Weight 113 lb 8.609 oz Weight 111 lb Physical Exam 2 Narrative: General: No apparent distress, healthy appearing, well nourished HENMT: normoceophalic Neck: No carotid bruit bilaterally Muskuloskeletal: Full ROM Lymphatic: no lymphedema noted Respiratory: Normal respiratory effort, clear to auscultation bilaterally throughout all lung mayo, no use of accessory muscles Cardio: No JVD, regular rate, regular rhythm, S1 S2 normal, no murmurs, peripheral pulses 2+ radial palpated bilaterally GI: Normal to inspection, nondistended Extremities: Full ROM, normal, normal capillary refill, no cyanosis or edema Neuro: Alert and oriented x4, no focal motor deficits Psych: Affect normal, denies suicidal ideation, mental status grossly normal Skin: No rashes or lesions noted, no wounds Data 01/07/25 02:55 01/07/25 02:55 Micro: Microbiology 01/06/25 19:12 Blood Culture - Preliminary Blood SPECIMEN COLLECTED 01/06/25 19:14 Blood Culture - Preliminary Blood SPECIMEN COLLECTED A&P Assessment and plan 1. NSTEMI (non-ST elevated myocardial infarction): 2. Cigarette smoker two packs a day or less: 3. ACS (acute coronary syndrome): 4. Mixed hyperlipidemia: 5. Hypertensive emergency: Plan: At this time patient has NSTEMI as evidenced by increased troponins and EKG change, new onset low EF. indicating possible underlying coronary artery disease. Patient has been n.p.o. since midnight and recommendations are to proceed with left heart cath possible PCI. The risk and benefits were discussed in detail with the patient. The risk of bleeding, hematoma, vascular injury, myocardial infarction, myocardial perforation, malignant cardiac arrhythmias ,CVA, renal failure and other concomitant complications were explained in detail. Patient fully agrees to proceed. For hypertension would continue lisinopril 20 mg and amlodipine [address] yo [address] Reid, for allowing us to care for this very pleasant 74 year old female. PDMP PDMP Reviewed: Not Reviewed Coding Level of Care Code Acute Code for [facility] Fwd Diagnoses NSTEMI (non-ST elevated myocardial infarction) I21.4 Cigarette smoker two packs a day or less F17.210 ACS (acute coronary syndrome) I24.9 Mixed hyperlipidemia E78.2 Hypertensive emergency I16.1
--- NOTE | 2025-01-07 11:32 | W.PM.OPSUD ---
Surgery/Procedure H&P Update DATE OF PROCEDURE: January 07, 2025 DATE H&P PERFORMED: 01/07/25 H&P UPDATE INFORMATION: I have reviewed H&P completed within last 30 days, I have examined patient prior to procedure and No changes to prior documentation PREOP DIAGNOSIS: Nstemi PATIENT REASSESSED PRIOR TO SEDATION, WITH NO CHANGE NOTED: Yes PHYSICAL EXAM: alert, oriented x 3, clear to auscultation bilaterally, regular rate & rhythm and operative site marked AIRWAY EVAL/ANESTHESIA PLAN: ASA II and Patient agrees to continue as planned ADDITIONAL INFORMATION: All risk-benefit and alternative for the procedure has been explained to the patient. Patient understand 2% risk of stroke major bleed. Patient restand 5% risk of minor bleeding oozing infection hematoma contrast-induced nephropathy urgent emergent vascular or bypass surgery. Patient agrees to it and would like to proceed with it
[2025-01-07] MEDS: ondansetron 2 mg/ML SDV 2 mL 4 MG IVP (13:32)
[2025-01-07] MEDS: pantoprazole 40 mg SDV IVP (18:39)
--- NOTE | 2025-01-07 18:43 | P.PN_ITS ---
Subjective 2 Subjective: The patient was seen in the morning after cath While sleepy however no chest pain or shortness of breath reported TR band on the right radial wrist, with mild hematoma however adequate perfusion to the hand observed with normal color Vitals/I&O/Wt Last Vital Signs Temp 97.8 F 01/07/25 12:27 Pulse 94 01/07/25 17:15 Resp 18 01/07/25 17:15 BP 114/50 01/07/25 17:15 Pulse Ox 90 01/07/25 17:15 O2 Del Method Room Air 01/07/25 07:20 01/07/25 01/07/25 01/07/25 06:59 14:59 22:59 Intake Total 240 / 240 360 / 600 Output Total 100 / 100 Balance -100 / -100 240 / 240 360 / 600 Weight last 48 hrs Weight 51.5 kg Weight 51.5 kg Weight 50.349 kg Physical Exam 2 Narrative: General: Alert and oriented, lying comfortably without any distress, able to complete full sentences HEENT: Normocephalic, atraumatic, grossly unremarkable exam Cardio: normal rate rhythm, normal S1-S2 without any murmurs, rubs, or gallops and JVD normal Respiratory: normal vascular breathing on auscultation without any wheezes, stridor, rhonchi GI: Abdomen soft, nontender, nondistended, normoactive bowel sounds present all 4 quadrants, Neuro: intact cranial nerves motor and sensory and cerebellar/coordination function without any focal neurological deficit Behavior: Appropriate and cooperative, TR band on the right radial artery with mild hematoma and bruise with adequate blood flow distally to the hand, adequate capillary refill Extremities: Adequate palpable pulses, mild trace pedal edema Data 01/07/25 02:55 01/07/25 02:55 Micro: Microbiology 01/06/25 19:12 Blood Culture - Preliminary Blood SPECIMEN COLLECTED 01/06/25 19:14 Blood Culture - Preliminary Blood SPECIMEN COLLECTED A&P Assessment and plan 1. ACS (acute coronary syndrome): - Patient on presentation had concerning troponins and admitted as a case of NSTEMI - S/p cath and stenting, continue hydration post stenting and to follow tomorrow -Cardiology on board and to follow the plan of care -Continue aspirin and Plavix with high-dose statins -Continue beta-blockers 25 mg daily - Telemetry/cardiac monitoring - Echo showed ejection fraction of around 40% with regional segmental wall motion abnormalities, for detailed report refer to the echo studies - Monitor and correction of electrolytes - TSH: Normal and hba1c: 5.3%, recent lipid panel reviewed done in 10/01 - Monitor hemodynamics and maintain MAP above 65 2. Hypertensive emergency: - Blood pressure is better controlled -Continue lisinopril 20 mg and amlodipine 5 mg 3. Leukocytosis, unspecified type: - Possible stress related secondary to ACS - No signs of infections based on clinical history and examination - Continue to monitor, if there is any clinical evidence of infection then low threshold for antibiotics - Follow blood culture and urine cultures - Chest x-ray did not show any acute findings 4. Mixed hyperlipidemia: - Blood works in September showed mixed hyperlipidemia - Continue high-dose statins 5. Cigarette smoker two packs a day or less: - patient recently quit one week ago before this presentation - Emphasis on smoking cessation has been provided - Follow-up with the primary care physician postdischarge PDMP PDMP Reviewed: Not Reviewed Attestations 2 Medical Necessity Statement*: Patient will stay overnight for management of ACS s/p cath and stenting and further plan of care following with the cardiology Time Spent in Patient Care: 16 - 35 minutes Other Attestations: Patient condition has been discussed at length with the patient/family, I have independently reviewed the chart labs imaging/diagnostics/EKG. the goals of care and code status with the patient/family/NOK/legal surgical sales representative, and documented accordingly. The management has been done according to the current clinical condition with respect to patient goals of care and based on recommendations/guidelines. The patient/family has been informed about the current condition and further plan of care. Agreed with the plan of care and understood without any language barrier. Every effort was made to ensure accuracy of natural resources instructor. Any obvious errors or omissions should be clarified with the author of the document. Coding Level of Care Code 19894 Diagnoses ACS (acute coronary syndrome) I24.9 Hypertensive emergency I16.1 Leukocytosis, unspecified type D72.829 Leukocytosis type: unspecified Mixed hyperlipidemia E78.2 Cigarette smoker two packs a day or less F17.210
[2025-01-08] VITALS (18 sets, daily range): BP systolic 104–134; BP diastolic 55–77; PULSE 67–86; RESP 13–21; TEMP 36.6; O2SAT 92–95
[2025-01-08] MEDS: metoprolol succinate ER (24 HR) 25 mg Tablet PO (04:46)
[2025-01-08 07:26] LABS: Hematocrit 45.0 % (36-47); Hemoglobin 14.80 g/dL (11.27-16.99); Mean Corpuscular HGB Conc 32.9 g/dL (30-55); Mean Corpuscular Hemoglobin 30.5 pg (27-33); Mean Corpuscular Volume 92.8 fl (85-98); Nucleated Red Blood Cells % 0 %; Platelet Count 447 10^3/cmm (157-399); Red Blood Count 4.85 10^6/uL (3.85-5.65); White Blood Count 16.16 10^3/uL (3.29-11.43)
[2025-01-08 07:50] LABS: Anion Gap 15.9 (5-19); Blood Urea Nitrogen 15 mg/dL (8-23); Calcium 8.8 mg/dL (8.5-10.5); Carbon Dioxide 25 mmol/L (22-29); Chloride 103 mmol/L (98-107); Glucose 106 mg/dL (65-115); Osmolality Calculated 291 mOsm/kg (285-295); Potassium 3.9 mmol/L (3.5-5.1); Sodium 140 mmol/L (136-145)
--- NOTE | 2025-01-08 10:43 | P.PN_ITS ---
<Statement entered by Andrey Spicer MD - 01/09/25 18:56> Patient was evaluated and cared for in conjunction with an advanced practice practitioner. I personally examined the patient and reviewed the chart and all pertinent data including imaging, telemetry, and laboratory results. I discussed the patient in detail with the advanced practice practitioner. Please see their note for complete H&P testing result and agreed upon plan of care for the patient. Subjective 2 Subjective: Patient's status post stent to the LAD. She is doing well without any chest pain. Cath site looks good. EF is 40%. Labs are stable. Blood pressures stable. Appears euvolemic. Vitals/I&O/Wt Last Vital Signs Temp 97.9 F 01/08/25 07:50 Pulse 74 01/08/25 07:50 Resp 18 01/08/25 07:50 BP 114/55 01/08/25 07:50 Pulse Ox 93 01/08/25 07:50 O2 Del Method Room Air 01/08/25 04:00 01/07/25 01/08/25 01/08/25 22:59 06:59 14:59 Intake Total 360 / 600 1120 / 1720 360 / 360 Balance 360 / 600 1120 / 1720 360 / 360 Weight last 48 hrs Weight 114 lb 13.773 oz Weight 113 lb 8.609 oz Weight 113 lb 8.609 oz Weight 111 lb Physical Exam 2 Narrative: General: No apparent distress, healthy appearing, well nourished HENMT: normoceophalic Neck: No carotid bruit bilaterally Muskuloskeletal: Full ROM Lymphatic: no lymphedema noted Respiratory: Normal respiratory effort, clear to auscultation bilaterally throughout all lung mayo, no use of accessory muscles Cardio: No JVD, regular rate, regular rhythm, S1 S2 normal, no murmurs, peripheral pulses 2+ radial palpated bilaterally GI: Normal to inspection, nondistended Extremities: Full ROM, normal, normal capillary refill, no cyanosis or edema Neuro: Alert and oriented x4, no focal motor deficits Psych: Affect normal, denies suicidal ideation, mental status grossly normal Skin: No rashes or lesions noted, no wounds Data 01/08/25 07:02 01/08/25 07:02 Micro: Microbiology 01/06/25 19:12 Blood Culture - Preliminary Blood NEGATIVE TO DATE 01/06/25 19:14 Blood Culture - Preliminary Blood NEGATIVE TO DATE A&P Assessment and plan 1. NSTEMI (non-ST elevated myocardial infarction): 2. Cigarette smoker two packs a day or less: 3. ACS (acute coronary syndrome): 4. Mixed hyperlipidemia: 5. Hypertensive emergency: Plan: At this time were going to initiate goal-directed therapy with Entresto at a low dose. We will see how she does today and if her pressures tolerate it discharge tomorrow. Continue to monitor RACHEL's and for worsening signs of heart failure. At this time patient is euvolemic. Continue metoprolol succinate 25, aspirin, Plavix, atorvastatin. PDMP PDMP Reviewed: Not Reviewed Attestations 2 Medical Necessity Statement*: Defer to primary Coding Level of Care Code Acute Code for [facility] Diagnoses NSTEMI (non-ST elevated myocardial infarction) I21.4 Cigarette smoker two packs a day or less F17.210 ACS (acute coronary syndrome) I24.9 Mixed hyperlipidemia E78.2 Hypertensive emergency I16.1
--- NOTE | 2025-01-08 13:44 | P.PN_ITS ---
Subjective 2 Subjective: Patient's status post stent to the LAD. Appears euvolemic and no chest pain or shortness of breath. Cardiology on board EF is 40%. Vitals/I&O/Wt Last Vital Signs Temp 97.9 F 01/08/25 07:50 Pulse 80 01/08/25 12:00 Resp 19 H 01/08/25 12:00 BP 134/77 01/08/25 12:00 Pulse Ox 95 01/08/25 12:00 O2 Del Method Room Air 01/08/25 08:00 01/07/25 01/08/25 01/08/25 22:59 06:59 14:59 Intake Total 360 / 600 1120 / 1720 720 / 720 Balance 360 / 600 1120 / 1720 720 / 720 Weight last 48 hrs Weight 52.1 kg Weight 51.5 kg Weight 51.5 kg Weight 50.349 kg Physical Exam 2 Narrative: General: Alert and oriented, lying comfortably without any distress, able to complete full sentences HEENT: Normocephalic, atraumatic, grossly unremarkable exam Cardio: normal rate rhythm, normal S1-S2 without any murmurs, rubs, or gallops and JVD normal, right radial artery seen, mild bruise no hematoma and adequate distal flow to the hand Respiratory: normal vascular breathing on auscultation without any wheezes, stridor, rhonchi GI: Abdomen soft, nontender, nondistended, normoactive bowel sounds present all 4 quadrants, Neuro: intact cranial nerves motor and sensory and cerebellar/coordination function without any focal neurological deficit Behavior: Appropriate and cooperative, right radial artery palpable and good flow distally, mild bruise on the right radial side Extremities: Adequate palpable pulses, mild trace pedal edema Data 01/08/25 07:02 01/08/25 07:02 Micro: Microbiology 01/06/25 21:04 Urine Culture - Preliminary Urine,Clean Catch 01/06/25 19:12 Blood Culture - Preliminary Blood NEGATIVE TO DATE 01/06/25 19:14 Blood Culture - Preliminary Blood NEGATIVE TO DATE A&P Assessment and plan 1. ACS (acute coronary syndrome): - Patient on presentation had concerning troponins and admitted as a case of NSTEMI - S/p cath and stenting to LAD - Cardiology on board and to continue on aspirin and Plavix with high-dose statins -Continue beta-blockers 25 mg daily - Based on patient EF, added Entresto and to see if she tolerates and later to add rest of the GDMT medications as per tolerance and patient's hemodynamics. - Monitor and correction of electrolytes - TSH: Normal and hba1c: 5.3%, recent lipid panel reviewed done in 10/01 - Monitor hemodynamics and maintain MAP above 65 2. Hypertensive emergency: - Blood pressure is better controlled - Continue lisinopril 20 mg and amlodipine 5 mg 3. Leukocytosis, unspecified type: - Possible stress related secondary to ACS - No signs of infections based on clinical history and examination - Blood cultures and urine cultures prelim negative - Chest x-ray did not show any acute findings - Continue to monitor, if there is any clinical evidence of infection then low threshold for antibiotics 4. Mixed hyperlipidemia: - Blood works in September showed mixed hyperlipidemia - Continue high-dose statins 5. Cigarette smoker two packs a day or less: - patient recently quit one week ago before this presentation - Emphasis on smoking cessation has been provided - Follow-up with the primary care physician postdischarge Plan: VTE: enoxaparin Diet: cardiac PDMP PDMP Reviewed: Not Reviewed Attestations 2 Medical Necessity Statement*: Patient will stay over midnight for the management of chronic artery disease s/p stenting and heart failure with reduced ejection fraction for GDMT Time Spent in Patient Care: 16 - 35 minutes (>than 50% of time sp ent in counselling and/or direct pt care on unit) . Other Attestations: Patient condition has been discussed at length with the patient/family, I have independently reviewed the chart labs imaging/diagnostics/EKG. the goals of care and code status with the patient/family/NOK/legal sales representative wire rope, and documented accordingly. The management has been done according to the current clinical condition with respect to patient goals of care and based on recommendations/guidelines. The patient/family has been informed about the current condition and further plan of care. Agreed with the plan of care and understood without any language barrier. Every effort was made to ensure accuracy of fire protection fabricator. Any obvious errors or omissions should be clarified with the author of the document. Coding Level of Care Code 49768 Diagnoses ACS (acute coronary syndrome) I24.9 Hypertensive emergency I16.1 Leukocytosis, unspecified type D72.829 Leukocytosis type: unspecified Mixed hyperlipidemia E78.2 Cigarette smoker two packs a day or less F17.210
[2025-01-08] MEDS: pantoprazole 40 mg SDV IVP (17:40)
[2025-01-09] VITALS: BP 112/53; PULSE 64; PULSE 66; RESP 18; RESP 19; O2SAT 92
[2025-01-09 04:00] VITALS: BP 126/60; PULSE 70; PULSE 78; RESP 20; RESP 22; TEMP 36.8; O2SAT 93; O2SAT 94
[2025-01-09] MEDS: metoprolol succinate ER (24 HR) 25 mg Tablet PO (05:22)
[2025-01-09 07:14] LABS: Hematocrit 43.8 % (36-47); Hemoglobin 14.00 g/dL (11.27-16.99); Mean Corpuscular HGB Conc 32.0 g/dL (30-55); Mean Corpuscular Hemoglobin 31.0 pg (27-33); Mean Corpuscular Volume 97.1 fl (85-98); Nucleated Red Blood Cells % 0 %; Platelet Count 358 10^3/cmm (157-399); Red Blood Count 4.51 10^6/uL (3.85-5.65); White Blood Count 11.98 10^3/uL (3.29-11.43)
[2025-01-09 07:30] LABS: Alanine Aminotransferase 13 U/L (0-33); Albumin Level 3.6 g/dL (3.5-5.2); Alkaline Phosphatase 81 U/L (35-105); Anion Gap 14.0 (5-19); Aspartate Amino Transferase 26 U/L (0-32); Blood Urea Nitrogen 17 mg/dL (8-23); Calcium 8.8 mg/dL (8.5-10.5); Carbon Dioxide 24 mmol/L (22-29); Chloride 102 mmol/L (98-107); Globulin 2.4 g/dL (1.3-4.6); Glucose 109 mg/dL (65-115); Magnesium 2.1 mg/dL (1.7-2.3); Osmolality Calculated 284 mOsm/kg (285-295); Potassium 4.0 mmol/L (3.5-5.1); Sodium 136 mmol/L (136-145); Total Protein 6.0 g/dL (6.6-8.7)
[2025-01-09 07:48] VITALS: BP 126/66; PULSE 73; RESP 17; TEMP 36.7; O2SAT 94
[2025-01-09 08:00] VITALS: BP 126/99; PULSE 71; RESP 20; O2SAT 93
--- NOTE | 2025-01-09 08:03 | PM.DCS ---
Documented by User: Malissa Paz MD 01/09/25 11:42 Discharge Providers Date of Admission: 01/06/25 18:24 Date of Discharge: January 09, 2025 Attending Provider at Admission: Gerard Reid MD Attending Provider at Discharge: Malissa Paz MD Consults: cardiology Primary Care Provider: ADIA Canales Diagnoses at Discharge Discharge Diagnosis 1. ACS (acute coronary syndrome): 2. Hypertensive emergency: 3. Leukocytosis, unspecified type: 4. Mixed hyperlipidemia: 5. Cigarette smoker two packs a day or less: Reason for Visit Reason for Visit: CP Hospital Course Hospital Course Patient is a pleasant 74-year-old female who presented to the hospital with complaints of chest pain, found to have NSTEMI. 1. ACS (acute coronary syndrome): - Patient on presentation had concerning troponins and admitted as a case of NSTEMI - S/p cath and stenting to LAD - Cardiology on board and to continue on aspirin and Plavix with high-dose statins -Continue beta-blockers 25 mg daily - Based on patient EF, added Entresto -Hemodynamic stable, will be discharged on aspirin Plavix statin beta-sohan and Entresto. - TSH: Normal and hba1c: 5.3%, recent lipid panel reviewed done in 10/01 2. Hypertensive emergency: - Blood pressure is better controlled - Continue lisinopril 20 mg and amlodipine 5 mg 3. Leukocytosis, unspecified type: Has improved significantly - Possible stress related secondary to ACS - No signs of infections based on clinical history and examination - Blood cultures and urine cultures prelim negative - Chest x-ray did not show any acute findings - No antibiotics upon discharge 4. Mixed hyperlipidemia: - Blood works in September showed mixed hyperlipidemia - Continue high-dose statin, continued upon discharge 5. Cigarette smoker two packs a day or less: - patient recently quit one week ago before this presentation - Emphasis on smoking cessation has been provided - Follow-up with the primary care physician postdischarge Patient currently medically stable for discharge. Will follow-up with PCP and cardiology outpatient. Discussed with patient and nursing staff Physical Exam Narrative: General: Alert and oriented, lying comfortably without any distress, able to complete full sentences HEENT: Normocephalic, atraumatic, grossly unremarkable exam Cardio: normal rate rhythm, normal S1-S2 without any murmurs, rubs, or gallops and JVD normal, right radial artery seen, mild bruise no hematoma and adequate distal flow to the hand Respiratory: normal vascular breathing on auscultation without any wheezes, stridor, rhonchi GI: Abdomen soft, nontender, nondistended, normoactive bowel sounds present all 4 quadrants, Neuro: intact cranial nerves motor and sensory and cerebellar/coordination function without any focal neurological deficit Behavior: Appropriate and cooperative, right radial artery palpable and good flow distally, mild bruise on the right radial side Extremities: Adequate palpable pulses Discharge Data Studies Completed and Pending Completed Studies During Hospitalization Category Date Time Status CT abdomen pelvis w con* [id number] Urgent Cat Scan 01/06/25 17:50 Completed [employer] request for service Routine Exams 01/07/25 08:39 Completed XR chest 1V portable [id number] Stat Exams 01/06/25 16:26 Completed CV. echo complete* [id number] Stat Ultrasound 01/06/25 18:41 Completed Pending at discharge Category Date Time Status Blood Culture Stat Lab 01/06/25 19:12 Results Platelet Count Q2D Lab 01/10/25 04:00 Ordered Platelet Count Q2D Lab 01/10/25 04:00 Ordered Urine Culture Routine Lab 01/06/25 21:04 Results Urine Culture Stat Lab 01/06/25 18:43 Uncollected Radiology Impressions Chest X-Ray 01/06/25 16:26 IMPRESSION: No acute findings. Abdomen/Pelvis CT 01/06/25 17:50 IMPRESSION: No acute process. Incidental and chronic findings as above. Laboratory Results WBC 11.98 10^3/uL (3.29-11.43) H 01/09/25 06:30 RBC 4.51 10^6/uL (3.85-5.65) 01/09/25 06:30 Hgb 14.00 g/dL (11.27-16.99) 01/09/25 06:30 Hct 43.8 % (36-47) 01/09/25 06:30 MCV 97.1 fl (85-98) 01/09/25 06:30 MCH 31.0 pg (27-33) 01/09/25 06:30 MCHC 32.0 g/dL (30-55) 01/09/25 06:30 RDW 12.2 % (12.1-15.1) 01/09/25 06:30 Plt Count 358 10^3/cmm (157-399) 01/09/25 06:30 MPV 10.6 fL (7.4-10.4) H 01/09/25 06:30 Neut % (Auto) 75.0 % 01/09/25 06:30 Lymph % (Auto) 14.9 % 01/09/25 06:30 [place] % (Auto) 6.1 % 01/09/25 06:30 Eos % (Auto) 2.9 % 01/09/25 06:30 Baso % (Auto) 0.8 % 01/09/25 06:30 Neut # (Auto) 9.00 10^3/uL (1.8-7.7) H 01/09/25 06:30 Lymph # (Auto) 1.8 10^3/uL (0.8-4.8) 01/09/25 06:30 [place] # (Auto) 0.7 10^3/uL (0.2-0.9) 01/09/25 06:30 Eos # (Auto) 0.4 10^3/uL (0.0-0.8) 01/09/25 06:30 Baso # (Auto) 0.1 10^3/uL (0.0-0.1) 01/09/25 06:30 Nucleated RBC % (auto) 0 % 01/09/25 06:30 Nucleated RBCs # 0.0 /100WBC 01/09/25 06:30 PT 12.90 SECONDS (12.1-14.9) 01/06/25 17:28 INR 0.91 (0.8-1.2) 01/06/25 17:28 Sodium 136 mmol/L (136-145) 01/09/25 06:30 Potassium 4.0 mmol/L (3.5-5.1) 01/09/25 06:30 Chloride 102 mmol/L (98-107) 01/09/25 06:30 Carbon Dioxide 24 mmol/L (22-29) 01/09/25 06:30 Anion Gap 14.0 (5-19) 01/09/25 06:30 BUN 17 mg/dL (8-23) 01/09/25 06:30 Creatinine 0.7 mg/dL (0.5-0.9) 01/09/25 06:30 GFR Calculation Not Reportable 01/09/25 06:30 Glucose 109 mg/dL (65-115) 01/09/25 06:30 Estimat Average Glucose 105 01/06/25 17:28 Hemoglobin A1c 5.3 % (4.0-6.0) 01/06/25 17:28 Calculated Osmolality 284 mOsm/kg (285-295) L 01/09/25 06:30 Calcium 8.8 mg/dL (8.5-10.5) 01/09/25 06:30 Phosphorus 3.1 mg/dL (2.5-4.5) 01/06/25 17: Magnesium 2.1 mg/dL (1.7-2.3) 01/09/25 06:30 Total Bilirubin 0.4 mg/dL (0.15-1.2) 01/09/25 06:30 AST 26 U/L (0-32) 01/09/25 06:30 ALT 13 U/L (0-33) 01/09/25 06:30 Alkaline Phosphatase 81 U/L (35-105) 01/09/25 06:30 Troponin T Baseline 200 ng/L (0-10) H* 01/06/25 17:28 Troponin T 120 Minute 153.8 ng/L (0-10) H 01/06/25 19:14 Delta Troponin T -46.2 ABS# (0-10) L 01/06/25 19:14 Troponin T Hi Sens 6Hr 185.5 ng/L (0-10) H 01/06/25 23:30 Troponin T Hi Sens 6Hr Delta -14.5 ng/L (0-12) L 01/06/25 23:30 Total Protein 6.0 g/dL (6.6-8.7) L 01/09/25 06:30 Albumin 3.6 g/dL (3.5-5.2) 01/09/25 06:30 Globulin 2.4 g/dL (1.3-4.6) 01/09/25 06:30 Lipase 14 U/L (13-60) 01/06/25 17:28 TSH 3.12 uIU/mL (0.27-4.20) 01/06/25 17:28 Urine Color [place] (Yellow) A 01/06/25 21:04 Urine Appearance Clear (CLEAR) 01/06/25 21:04 Urine pH 6.5 (5-7) 01/06/25 21:04 Ur Specific [place] 1.044 (1.005-1.030) H 01/06/25 21:04 Urine Protein Negative (Negative) 01/06/25 21:04 Urine Glucose (UA) Negative (Normal) 01/06/25 21:04 Urine Ketones 1+ (Negative) H 01/06/25 21:04 Urine Blood Negative (Negative) 01/06/25 21:04 Urine Nitrate Negative (Negative) 01/06/25 21:04 Urine Bilirubin Negative (Negative) 01/06/25 21:04 Urine Urobilinogen 0.2 mg/dL (Negative) 01/06/25 21:04 Ur Leukocyte Esterase Trace (Negative) A 01/06/25 21:04 Urine RBC 0-2 /hpf (0-2) 01/06/25 21:04 Urine WBC 11-20 /hpf (0-5) H 01/06/25 21:04 Ur Squamous Epith Cells 0-5 /hpf (0-5) 01/06/25 21:04 Amorphous Sediment Not Reportable 01/06/25 21:04 Urine Bacteria None seen /hpf (NONE) 01/06/25 21:04 Hyaline Casts 0-4 /lpf H 01/06/25 21:04 Urine Opiates Screen Negative ng/mL (Negative) 01/06/25 21:04 Ur Barbiturates Screen Negative ng/mL (Negative) 01/06/25 21:04 Ur Phencyclidine Scrn Negative ng/mL (Negative) 01/06/25 21:04 Ur Amphetamines Screen Negative ng/mL (Negative) 01/06/25 21:04 U Benzodiazepines Scrn Negative ng/mL (Negative) 01/06/25 21:04 Urine Cocaine Screen Negative ng/mL (Negative) 01/06/25 21:04 U Marijuana (THC) Screen Negative ng/mL (Negative) 01/06/25 21:04 Vitals Last Vital Signs Temp 98.0 F 01/09/25 07:48 Pulse 73 01/09/25 07:48 Resp 17 01/09/25 07:48 BP 126/66 01/09/25 07:48 Pulse Ox 94 01/09/25 07:48 O2 Del Method Room Air 01/09/25 04:00 Discharge Plan Discharge Patient Disposition: Home Condition: Stable Prescriptions: New atorvastatin 40 mg Tablet 40 mg PO DAILY Qty: 30 0RF clopidogrel 75 mg Tablet 75 mg PO DAILY Qty: 30 0RF aspirin 81 mg Tablet,Delayed Release (Dr/Ec) 81 mg PO DAILY Qty: 30 0RF metoprolol succinate 25 mg Tablet Extended Release 24 Hr 25 mg PO DAILY Qty: 30 0RF Discontinued lisinopril 5 mg tablet 5 mg PO DAILY 90 Days Qty: 90 3RF No Action sacubitril-valsartan [Entresto] 24-26 mg tablet 1 tab PO BID Qty: 180 1RF Discharge Order = DC NOW: Discharge Order (Routine); Ordered 01/09/25 Ordered By: Malissa Paz Referrals: Juaquin Bustamante FNP [Primary Care Provider, Family Practice] - 01/14/25 1:40 pm Liv Dias FNP [Nurse Practitioner, Cardiology] - 01/23/25 3:00 pm Discharge Diet: Cardiac Discharge Activity: Increase activity as tolerated Patient Instructions: Metoprolol (By mouth), Aspirin (By mouth), Atorvastatin (By mouth), Clopidogrel (By mouth), Sacubitril/Valsartan (By mouth), Coronary Angioplasty (DC), How to Stop Smoking (DC), Opioid Safety, Post Angiogram Home Care Instructions, Patient Portal & Andrea Instructions Discharge Attestations Time Spent in Discharge Care*: greater than 30 min Coding Level of Care Code Acute Code for [facility] Diagnoses ACS (acute coronary syndrome) I24.9 Hypertensive emergency I16.1 Leukocytosis, unspecified type D72.829 Leukocytosis type: unspecified Mixed hyperlipidemia E78.2 Cigarette smoker two packs a day or less F17.210 Documented by User: Bob Thompson MD 01/28/25 15:17 Diagnoses at Discharge Discharge Diagnosis 1. ACS (acute coronary syndrome): 2. Hypertensive emergency: 3. Leukocytosis, unspecified type: 4. Mixed hyperlipidemia: 5. Cigarette smoker two packs a day or less: Reason for Visit Reason for Visit: CP Hospital Course Hospital Course Patient is a pleasant 74-year-old female who presented to the hospital with complaints of chest pain, found to have NSTEMI. 1. ACS (acute coronary syndrome): - Patient on presentation had concerning troponins and admitted as a case of NSTEMI - S/p cath and stenting to LAD - Cardiology on board and to continue on aspirin and Plavix with high-dose statins -Continue beta-blockers 25 mg daily - Based on patient EF, added Entresto -Hemodynamic stable, will be discharged on aspirin Plavix statin beta-sohan and Entresto. - TSH: Normal and hba1c: 5.3%, recent lipid panel reviewed done in 10/01 2. Hypertensive emergency: - Blood pressure is better controlled - Continue lisinopril 20 mg and amlodipine 5 mg 3. Leukocytosis, unspecified type: Has improved significantly - Possible stress related secondary to ACS - No signs of infections based on clinical history and examination - Blood cultures and urine cultures prelim negative - Chest x-ray did not show any acute findings - No antibiotics upon discharge 4. Mixed hyperlipidemia: - Blood works in September showed mixed hyperlipidemia - Continue high-dose statin, continued upon discharge 5. Cigarette smoker two packs a day or less: - patient recently quit one week ago before this presentation - Emphasis on smoking cessation has been provided - Follow-up with the primary care physician postdischarge Patient currently medically stable for discharge. Will follow-up with PCP and cardiology outpatient. Discussed with patient and nursing staff Discharge Plan Discharge Patient Disposition: Home Condition: Stable Prescriptions: New atorvastatin 40 mg Tablet 40 mg PO DAILY Qty: 30 0RF clopidogrel 75 mg Tablet 75 mg PO DAILY Qty: 30 0RF aspirin 81 mg Tablet,Delayed Release (Dr/Ec) 81 mg PO DAILY Qty: 30 0RF metoprolol succinate 25 mg Tablet Extended Release 24 Hr 25 mg PO DAILY Qty: 30 0RF Discontinued lisinopril 5 mg tablet 5 mg PO DAILY 90 Days Qty: 90 3RF No Action sacubitril-valsartan [Entresto] 24-26 mg tablet 1 tab PO BID Qty: 180 1RF Discharge Order = DC NOW: Discharge Order (Routine); Ordered 01/09/25 Ordered By: Malissa Paz Referrals: Juaquin Bustamante FNP [Primary Care Provider, Family Practice] - 01/14/25 1:40 pm Liv Dias FNP [Nurse Practitioner, Cardiology] - 01/23/25 3:00 pm Discharge Diet: Cardiac Discharge Activity: Increase activity as tolerated Patient Instructions: Metoprolol (By mouth), Aspirin (By mouth), Atorvastatin (By mouth), Clopidogrel (By mouth), Sacubitril/Valsartan (By mouth), Coronary Angioplasty (DC), How to Stop Smoking (DC), Opioid Safety, Post Angiogram Home Care Instructions, Patient Portal & Andrea Instructions Quality Metrics Clinical Quality Measures [ Acute Myocardial Infaction { Clinical Trial Participant: No; Contraindication to aspirin: None; Aspirin prescribed; Contraindication to statin: None; Statin prescribed;}] Coding Level of Care Code Acute Code for [facility] Fwd Diagnoses ACS (acute coronary syndrome) I24.9 Hypertensive emergency I16.1 Leukocytosis, unspecified type D72.829 Leukocytosis type: unspecified Mixed hyperlipidemia E78.2 Cigarette smoker two packs a day or less F17.210
--- NOTE | 2025-01-09 09:23 | PC.SOCIAL ---
IMM Update pg 2 of IMM Updated and reviewed w/ patient. Copy provided and copy dated, initialed and placed in chart.
[2025-01-09 12:05] VITALS: BP 124/56; PULSE 72; RESP 21; O2SAT 96
--- NOTE | 2025-01-09 14:21 | P.PN_ITS ---
<Statement entered by Andrey Spicer MD - 01/09/25 18:53> Patient was evaluated and cared for in conjunction with an advanced practice practitioner. I personally examined the patient and reviewed the chart and all pertinent data including imaging, telemetry, and laboratory results. I discussed the patient in detail with the advanced practice practitioner. Please see their note for complete H&P testing result and agreed upon plan of care for the patient. Subjective 2 Subjective: Patient seen today doing well with no complaints. No signs of fluid overload. She tolerated Entresto well. Renal function is normal. Denies chest pain or shortness of breath. Vitals/I&O/Wt Last Vital Signs Temp 98.0 F 01/09/25 07:48 Pulse 72 01/09/25 12:05 Resp 21 H 01/09/25 12:05 BP 124/56 01/09/25 12:05 Pulse Ox 96 01/09/25 12:05 O2 Del Method Room Air 01/09/25 08:00 01/08/25 01/09/25 01/09/25 22:59 06:59 14:59 Intake Total 120 / 840 240 / 1080 360 / 360 Balance 120 / 840 240 / 1080 360 / 360 Weight last 48 hrs Weight 115 lb 4.828 oz Weight 114 lb 13.773 oz Physical Exam 2 Narrative: General: No apparent distress, healthy appearing, well nourished HENMT: normoceophalic Neck: No carotid bruit bilaterally Muskuloskeletal: Full ROM Lymphatic: no lymphedema noted Respiratory: Normal respiratory effort, clear to auscultation bilaterally throughout all lung mayo, no use of accessory muscles Cardio: No JVD, regular rate, regular rhythm, S1 S2 normal, no murmurs, peripheral pulses 2+ radial palpated bilaterally GI: Normal to inspection, nondistended Extremities: Full ROM, normal, normal capillary refill, no cyanosis or edema Neuro: Alert and oriented x4, no focal motor deficits Psych: Affect normal, denies suicidal ideation, mental status grossly normal Skin: No rashes or lesions noted, no wounds Data 01/09/25 06:30 01/09/25 06:30 Micro: Microbiology 01/06/25 21:04 Urine Culture - Final Urine,Clean Catch A&P Assessment and plan 1. NSTEMI (non-ST elevated myocardial infarction): 2. Cigarette smoker two packs a day or less: 3. ACS (acute coronary syndrome): 4. Mixed hyperlipidemia: 5. Hypertensive emergency: Plan: Patient is euvolemic. Status post stent to the LAD. Denies chest pain or shortness of breath. She is ready for discharge from cardiology standpoint. Recommend atorvastatin 40 mg, aspirin, Plavix, continue metoprolol succinate 25 mg, continue Entresto 24-26 mg 1 twice daily. Will need follow-up in the clinic in 1 week. Continue on aspirin and Plavix x 1 year and will reevaluate at that time. PDMP PDMP Reviewed: Not Reviewed Attestations 2 Medical Necessity Statement*: stable for d/c from cardiology standpoint Coding Level of Care Code Acute Code for [facility] Diagnoses NSTEMI (non-ST elevated myocardial infarction) I21.4 Cigarette smoker two packs a day or less F17.210 ACS (acute coronary syndrome) I24.9 Mixed hyperlipidemia E78.2 Hypertensive emergency I16.1
== END 2025-01-09 12:59 | disposition home or self-care (01) | DRG 322 ==
LOC: ER 19:36 → ER IP 20:38 → CSU 23:35
PROVIDERS: Emergency Medicine; Internal Medicine Cardiovascular Disease; Nurse Practitioner Family; Admitting Provider Student in an Organized Health Care Education/Training Program; Emergency Provider Emergency Medicine; PCP Registered Nurse; Visit Provider Internal Medicine
PROC: 027034Z Dilation of Coronary Artery, One Artery with Drug-eluting Intraluminal Device, Percutaneous Approach (ICD-10-PCS; principal; 2025-01-07 11:30)
PROC: 027034Z Dilation of Coronary Artery, One Artery with Drug-eluting Intraluminal Device, Percutaneous Approach (ICD-10-PCS; 2025-01-07 11:30)
DX: I21.4 Non-ST elevation (NSTEMI) myocardial infarction (principal); I16.1 Hypertensive emergency; I50.20 Unspecified systolic (congestive) heart failure; F17.210 Nicotine dependence, cigarettes, uncomplicated; I25.10 Atherosclerotic heart disease of native coronary artery without angina pectoris; I24.9 Acute ischemic heart disease, unspecified; E78.2 Mixed hyperlipidemia; I11.0 Hypertensive heart disease with heart failure; I44.4 Left anterior fascicular block; Z79.82 Long term (current) use of aspirin; Z79.02 Long term (current) use of antithrombotics/antiplatelets; Z82.49 Family history of ischemic heart disease and other diseases of the circulatory system
CPT/HCPCS: 36415; 71045; 74177; 80048; 80053; 80306; 81001; 83036; 83690; 83735; 84100; 84443; 84484; 85025; 85347; 85610; 87040; 87086; 93005; 93306; 93458; 96365; 96366; 96372; 96374; 96375; 97116; 97161; 97165; 99152; 99153; 99285; C1725; C1769; C1874; C1887; C1894; C9600; J0360; J1644; J1650; J2250; J2405; J2470; J3010; J3490; J7030; J9999; Q0163; Q9967

== ENCOUNTER → 2025-01-23 14:41 | Outpatient (BNVA) | payer MEDICARE, MEDICAID, SELFPAY | PROVIDERS: PCP Registered Nurse; Visit Provider Nurse Practitioner Family | DX: I25.10 Atherosclerotic heart disease of native coronary artery without angina pectoris (principal); I25.2 Old myocardial infarction; Z51.89 Encounter for other specified aftercare; I11.0 Hypertensive heart disease with heart failure; I50.20 Unspecified systolic (congestive) heart failure; Z95.5 Presence of coronary angioplasty implant and graft; Z87.891 Personal history of nicotine dependence; R04.0 Epistaxis | CPT/HCPCS: 36415; 80048; 99214 ==